=== PATIENT | male | born 1940 | race Caucasian/White ===

== ENCOUNTER 2018-05-06 04:28 | Inpatient (IN) | payer MEDICARE, OTHER ==
[~2018-05-06] VITALS: Ht 175.3 cm; Wt 64.7 kg
[~2018-05-06 04:28] MED LIST: CLOP75TA PO; FLUO20CA19 PO; LEVO50TA5 PO; LORA-445 PO; METF500T5 PO; METO25TA35 PO; OLAN5TAB9 PO; SIMV5TAB5 PO
[2018-05-06 04:58] LABS: BASOPHILS % (AUTO) 0 % (0-1); EOSINOPHILS # (AUTO) 0.31 x10^3/uL (0-0.4); EOSINOPHILS % (AUTO) 2 % (1-7); LYMPHOCYTES # (AUTO) 0.38 x10^3/uL (1-3.4); LYMPHOCYTES % (AUTO) 2 % (22-44); MD NO; MEAN CORPUSCULAR HEMOGLOBIN 29.8 pg (27.5-34.5); MEAN CORPUSCULAR HGB CONC 33.1 g/dL (33.2-36.2); MEAN CORPUSCULAR VOLUME 90.1 fL (81-97); MEAN PLATELET VOLUME 7.8 fL (7.4-10.4); MONOCYTES # (AUTO) 1.15 x10^3/uL (0.2-0.8); MONOCYTES % (AUTO) 7 % (2-9); NEUTROPHILS # (AUTO) 15.31 x10^3/uL (1.8-6.8); NEUTROPHILS % (AUTO) 89 % (42-75); PLATELET COUNT 249 x10^3/uL (130-400); RED BLOOD COUNT 5.71 x10^6/uL (4.38-5.82); RED CELL DISTRIBUTION WIDTH 13.8 % (9.4-14.8)
[2018-05-06] MEDS ORDERED: SODIUM CHLORIDE 0.9% 1,000ML IVBOLUS ONE ×2 (05:00→05:30)
[2018-05-06] MEDS ORDERED: SODIUM CHLORIDE FLUSH 10ML SYR IVF ONE (05:00)
[2018-05-06 05:08] LABS: ALANINE AMINOTRANSFERASE 15 U/L (12-78); ALBUMIN 3.8 g/dL (3.4-5.0); ANION GAP 8 mmol/L (5-15); CALCIUM 9.5 mg/dL (8.5-10.1); CHLORIDE 109 mmol/L (98-107); CREATININE 1.28 mg/dL (0.7-1.3)
[2018-05-06 05:11] LABS: ALKALINE PHOSPHATASE 106 U/L (45-117); BILIRUBIN,TOTAL 1.1 mg/dL (0.2-1.0); TOTAL PROTEIN 8.4 g/dL (6.4-8.2)
[2018-05-06] MEDS ORDERED: OMNIPAQUE 350 MG/ML, 100ML BOTTLE ONE (06:00)
[2018-05-06 07:45] LABS: MICROSCOPIC NOT IND
[2018-05-06 07:46] LABS: CULTURE INDICATED? NO
[2018-05-06] MEDS ORDERED: AZITHROMYCIN 500 MG in SODIUM CHLORIDE 0.9% 250 ML IVPB ONE (08:00)
[2018-05-06] MEDS ORDERED: ONDANSETRON 2MG/ML, 2ML IVPush ONE (08:00)
[2018-05-06] MEDS ORDERED: CEFTRIAXONE PMX 1GM/50ML 50 ML IVPB ONE (08:00)
[2018-05-06] MEDS ORDERED: ONDANSETRON 2MG/ML, 2ML ONE (08:05)
[2018-05-06] MEDS ORDERED: CEFTRIAXONE PMX 1GM/50ML 50 ML ONE (08:06)
[2018-05-06] MEDS ORDERED: LABETALOL 5MG/ML, 20ML IVPush PRN (09:30)
[2018-05-06] MEDS: LEVOTHYROXINE 50 MCG TABLET PO SCH (09:44)
[2018-05-06 09:59] VITALS: BP 97/64
[2018-05-06] MEDS ORDERED: CEFTRIAXONE 1,000 MG in SODIUM CHLORIDE 0.9% 50 ML IV SCH (10:00)
[2018-05-06] MEDS ORDERED: SODIUM CHLORIDE 0.9% 1,000 ML IV SCH (10:00)
[2018-05-06 10:20] LABS: FREE T4 (FREE THYROXINE) 1.02 ng/dL (0.76-1.46)
[2018-05-06] MEDS ORDERED: SODIUM POLYSTYRENE SULFONATE ORAL SUSP PO ONE (11:30)
[2018-05-06] MEDS: ENOXAPARIN 40 MG/0.4 ML SQ SCH (11:35)
[2018-05-06] MEDS: CLOPIDOGREL 75 MG TABLET PO SCH (11:36)
[2018-05-06] MEDS: METRONIDAZOLE PMX 500MG/100ML 100 ML IV SCH ×2 (12:35→18:06)
[2018-05-06 12:55] VITALS: BP 96/60
[2018-05-06] MEDS: DOXYCYCLINE 100 MG in DEXTROSE 5% 250 ML IV SCH (13:35)
[2018-05-06 14:00] LABS: ANION GAP 7 mmol/L (5-15); CALCIUM 8.4 mg/dL (8.5-10.1); CHLORIDE 113 mmol/L (98-107); CREATININE 1.08 mg/dL (0.7-1.3)
[2018-05-06 14:18] LABS: CLOSTRIDIUM DIFFICILE ANTIGEN NEGATIVE; CLOSTRIDIUM DIFFICILE TOXIN NEGATIVE (Negative)
[2018-05-06] MEDS: SODIUM CHLORIDE 0.9% 1,000 ML IV SCH (18:06)
[2018-05-06 19:49] VITALS: BP 104/64
[2018-05-06] MEDS: INSULIN LISPRO 100 UNITS/ML, PEN SQ-INSULIN SCH (20:52)
[2018-05-06] MEDS: SIMVASTATIN 5 MG TABLET PO SCH (20:52)
[2018-05-06] MEDS ORDERED: FLUOXETINE HCL 20 MG CAPSULE PO SCH (21:00)
[2018-05-07] MEDS: METRONIDAZOLE PMX 500MG/100ML 100 ML IV SCH ×4 (00:47→18:41)
[2018-05-07 02:15] VITALS: BP 100/64
[2018-05-07] MEDS: DOXYCYCLINE 100 MG in DEXTROSE 5% 250 ML IV SCH ×2 (02:39→13:41)
[2018-05-07 05:16] LABS: BASOPHILS # (AUTO) 0.02 x10^3/uL (0-0.1); BASOPHILS % (AUTO) 0 % (0-1); EOSINOPHILS # (AUTO) 0.46 x10^3/uL (0-0.4); EOSINOPHILS % (AUTO) 8 % (1-7); LYMPHOCYTES # (AUTO) 1.43 x10^3/uL (1-3.4); LYMPHOCYTES % (AUTO) 25 % (22-44); MD NO; MEAN CORPUSCULAR HEMOGLOBIN 30.4 pg (27.5-34.5); MEAN CORPUSCULAR HGB CONC 33.1 g/dL (33.2-36.2); MEAN CORPUSCULAR VOLUME 91.8 fL (81-97); MEAN PLATELET VOLUME 7.8 fL (7.4-10.4); MONOCYTES # (AUTO) 0.87 x10^3/uL (0.2-0.8); MONOCYTES % (AUTO) 15 % (2-9); NEUTROPHILS # (AUTO) 2.98 x10^3/uL (1.8-6.8); NEUTROPHILS % (AUTO) 52 % (42-75); PLATELET COUNT 196 x10^3/uL (130-400); RED BLOOD COUNT 4.61 x10^6/uL (4.38-5.82); RED CELL DISTRIBUTION WIDTH 14.1 % (9.4-14.8)
[2018-05-07 05:21] LABS: ALBUMIN 2.8 g/dL (3.4-5.0); ANION GAP 8 mmol/L (5-15); CALCIUM 8.3 mg/dL (8.5-10.1); CHLORIDE 110 mmol/L (98-107)
[2018-05-07 05:34] LABS: ALANINE AMINOTRANSFERASE 12 U/L (12-78); ALKALINE PHOSPHATASE 75 U/L (45-117); BILIRUBIN,TOTAL 0.9 mg/dL (0.2-1.0); CREATININE 1.12 mg/dL (0.7-1.3); THYROID STIMULATING HORMONE 0.885 mIU/L (0.358-3.740); TOTAL PROTEIN 6.3 g/dL (6.4-8.2)
[2018-05-07] MEDS: LEVOTHYROXINE 50 MCG TABLET PO SCH (05:47)
[2018-05-07] MEDS: INSULIN LISPRO 100 UNITS/ML, PEN SQ-INSULIN SCH ×4 (07:00→21:00)
[2018-05-07 07:37] VITALS: BP 121/78
[2018-05-07] MEDS ORDERED: ONDANSETRON ODT 4 MG ONE (08:26)
[2018-05-07] MEDS: CEFTRIAXONE 1,000 MG in SODIUM CHLORIDE 0.9% 50 ML IV SCH (08:28)
[2018-05-07] MEDS: CLOPIDOGREL 75 MG TABLET PO SCH (08:28)
[2018-05-07] MEDS: SODIUM CHLORIDE 0.9% 1,000 ML IV SCH (08:28)
[2018-05-07] MEDS: ONDANSETRON 2MG/ML, 2ML IVPush PRN ×2 (08:29→21:00)
[2018-05-07] MEDS: ENOXAPARIN 40 MG/0.4 ML SQ SCH (11:53)
[2018-05-07 12:56] VITALS: BP 98/64
[2018-05-07 18:27] VITALS: BP 109/68
[2018-05-07] MEDS: SIMVASTATIN 5 MG TABLET PO SCH (21:04)
[2018-05-07] MEDS ORDERED: SODIUM CHLORIDE 0.9% 1,000 ML IV SCH (23:00)
[2018-05-08] MEDS: METRONIDAZOLE PMX 500MG/100ML 100 ML IV SCH ×4 (00:24→18:18)
[2018-05-08] MEDS: DIPHENHYDRAMINE 25 MG CAPSULE PO PRN (00:51)
[2018-05-08 00:53] VITALS: BP 105/66
[2018-05-08 05:40] LABS: BASOPHILS # (AUTO) 0.03 x10^3/uL (0-0.1); BASOPHILS % (AUTO) 1 % (0-1); EOSINOPHILS # (AUTO) 0.47 x10^3/uL (0-0.4); EOSINOPHILS % (AUTO) 8 % (1-7); LYMPHOCYTES # (AUTO) 1.25 x10^3/uL (1-3.4); LYMPHOCYTES % (AUTO) 22 % (22-44); MD NO; MEAN CORPUSCULAR HEMOGLOBIN 29.9 pg (27.5-34.5); MEAN CORPUSCULAR HGB CONC 32.9 g/dL (33.2-36.2); MEAN CORPUSCULAR VOLUME 90.7 fL (81-97); MEAN PLATELET VOLUME 7.5 fL (7.4-10.4); MONOCYTES # (AUTO) 0.83 x10^3/uL (0.2-0.8); MONOCYTES % (AUTO) 15 % (2-9); NEUTROPHILS # (AUTO) 3.15 x10^3/uL (1.8-6.8); NEUTROPHILS % (AUTO) 55 % (42-75); PLATELET COUNT 193 x10^3/uL (130-400); RED BLOOD COUNT 4.36 x10^6/uL (4.38-5.82); RED CELL DISTRIBUTION WIDTH 13.2 % (9.4-14.8)
[2018-05-08 05:53] LABS: CHLORIDE 112 mmol/L (98-107)
[2018-05-08 06:00] LABS: ALANINE AMINOTRANSFERASE 13 U/L (12-78); ALBUMIN 2.7 g/dL (3.4-5.0); ALKALINE PHOSPHATASE 73 U/L (45-117); ANION GAP 4 mmol/L (5-15); BILIRUBIN,TOTAL 0.9 mg/dL (0.2-1.0); CALCIUM 8.1 mg/dL (8.5-10.1); CREATININE 0.92 mg/dL (0.7-1.3); TOTAL PROTEIN 6.2 g/dL (6.4-8.2)
[2018-05-08] MEDS: LEVOTHYROXINE 50 MCG TABLET PO SCH (06:19)
[2018-05-08 06:59] VITALS: BP 133/69
[2018-05-08] MEDS: CEFTRIAXONE 1,000 MG in SODIUM CHLORIDE 0.9% 50 ML IV SCH (08:22)
[2018-05-08] MEDS: INSULIN LISPRO 100 UNITS/ML, PEN SQ-INSULIN SCH ×4 (08:22→21:00)
[2018-05-08] MEDS ORDERED: SODIUM CHLORIDE 0.9% 1,000 ML IV SCH (09:28)
[2018-05-08] MEDS: CLOPIDOGREL 75 MG TABLET PO SCH (09:50)
[2018-05-08] MEDS: ENOXAPARIN 40 MG/0.4 ML SQ SCH (12:17)
[2018-05-08 14:01] VITALS: BP 113/67
[2018-05-08] MEDS: ONDANSETRON 2MG/ML, 2ML IVPush PRN (18:55)
[2018-05-08 19:20] VITALS: BP 107/66
[2018-05-08] MEDS: CIPROFLOXACIN 500 MG TABLET PO SCH (21:00)
[2018-05-08] MEDS: SIMVASTATIN 5 MG TABLET PO SCH (21:00)
[2018-05-08] MEDS: metroNIDAZOLE 500 MG TABLET PO SCH (21:00)
[2018-05-08] MEDS: LACTOBACILLUS CHEW TABLET PO SCH (21:00)
[2018-05-08] MEDS: PROMETHAZINE 25 MG/ML, 1ML IM PRN (21:44)
[2018-05-09 01:17] VITALS: BP 103/59
[2018-05-09] MEDS: ONDANSETRON 2MG/ML, 2ML IVPush PRN ×2 (05:03→17:25)
[2018-05-09] MEDS: SODIUM CHLORIDE 0.9% 1,000 ML IV SCH ×2 (05:06→20:59)
[2018-05-09 05:43] LABS: CALCIUM 8.5 mg/dL (8.5-10.1); CHLORIDE 112 mmol/L (98-107)
[2018-05-09 05:44] LABS: BASOPHILS # (AUTO) 0.02 x10^3/uL (0-0.1); BASOPHILS % (AUTO) 0 % (0-1); EOSINOPHILS # (AUTO) 0.46 x10^3/uL (0-0.4); EOSINOPHILS % (AUTO) 7 % (1-7); LYMPHOCYTES # (AUTO) 1.62 x10^3/uL (1-3.4); LYMPHOCYTES % (AUTO) 24 % (22-44); MD NO; MEAN CORPUSCULAR HEMOGLOBIN 30.3 pg (27.5-34.5); MEAN CORPUSCULAR HGB CONC 33.3 g/dL (33.2-36.2); MEAN CORPUSCULAR VOLUME 90.8 fL (81-97); MEAN PLATELET VOLUME 7.7 fL (7.4-10.4); MONOCYTES # (AUTO) 0.82 x10^3/uL (0.2-0.8); MONOCYTES % (AUTO) 12 % (2-9); NEUTROPHILS # (AUTO) 3.75 x10^3/uL (1.8-6.8); NEUTROPHILS % (AUTO) 56 % (42-75); PLATELET COUNT 204 x10^3/uL (130-400); RED CELL DISTRIBUTION WIDTH 13.3 % (9.4-14.8)
[2018-05-09 05:46] LABS: ANION GAP 8 mmol/L (5-15); CREATININE 0.86 mg/dL (0.7-1.3)
[2018-05-09] MEDS: LEVOTHYROXINE 50 MCG TABLET PO SCH (06:00)
[2018-05-09 06:34] LABS: HEMOGLOBIN A1C 5.7 % (4.2-6.3)
[2018-05-09 07:06] VITALS: BP 130/74
[2018-05-09] MEDS: LACTOBACILLUS CHEW TABLET PO SCH ×3 (09:58→20:58)
[2018-05-09] MEDS: metroNIDAZOLE 500 MG TABLET PO SCH ×3 (09:58→20:59)
[2018-05-09] MEDS: CLOPIDOGREL 75 MG TABLET PO SCH (09:58)
[2018-05-09] MEDS: CIPROFLOXACIN 500 MG TABLET PO SCH ×2 (09:58→20:58)
[2018-05-09] MEDS ORDERED: PARO20TA4 PO (12:58)
[2018-05-09] MEDS ORDERED: FLUV50TA2 PO (12:58)
[2018-05-09] MEDS ORDERED: ACET-1600 PO (12:58)
[2018-05-09] MEDS ORDERED: ALBU18HF INH (12:58)
[2018-05-09] MEDS ORDERED: CLON-364 PO (12:58)
[2018-05-09] MEDS ORDERED: BUDE10.2 INH (12:58)
[2018-05-09] MEDS: ENOXAPARIN 40 MG/0.4 ML SQ SCH (13:02)
[2018-05-09 13:13] VITALS: BP 118/76
[2018-05-09 20:50] VITALS: BP 110/70
[2018-05-09] MEDS: PROMETHAZINE 25 MG/ML, 1ML IM PRN (20:57)
[2018-05-09] MEDS: CALCIUM/VITAMIN D3 250-125 TABLET PO SCH (20:58)
[2018-05-09] MEDS: SIMVASTATIN 5 MG TABLET PO SCH (20:59)
[2018-05-10 02:41] VITALS: BP 122/74
[2018-05-10] MEDS: LEVOTHYROXINE 50 MCG TABLET PO SCH (06:28)
[2018-05-10] MEDS: ALENDRONATE 10 MG TABLET PO SCH (06:28)
[2018-05-10 08:23] VITALS: BP 106/63
[2018-05-10] MEDS: CIPROFLOXACIN 500 MG TABLET PO SCH ×2 (08:53→20:40)
[2018-05-10] MEDS: LACTOBACILLUS CHEW TABLET PO SCH ×3 (08:53→20:40)
[2018-05-10] MEDS: CALCIUM/VITAMIN D3 250-125 TABLET PO SCH ×2 (08:53→20:40)
[2018-05-10] MEDS: CLOPIDOGREL 75 MG TABLET PO SCH (08:53)
[2018-05-10] MEDS: metroNIDAZOLE 500 MG TABLET PO SCH ×3 (08:53→20:40)
[2018-05-10] MEDS ORDERED: METR500T PO (10:06)
[2018-05-10] MEDS ORDERED: CALC1TAB68 PO (10:06)
[2018-05-10] MEDS ORDERED: CIPR500T87 PO (10:06)
[2018-05-10] MEDS ORDERED: ACID1TAB7 PO (10:06)
[2018-05-10] MEDS ORDERED: ALEN10TA6 PO (10:06)
[2018-05-10 12:38] VITALS: BP 142/77
[2018-05-10] MEDS: ENOXAPARIN 40 MG/0.4 ML SQ SCH (12:43)
[2018-05-10] MEDS: SIMVASTATIN 5 MG TABLET PO SCH (20:41)
[2018-05-10 20:43] VITALS: BP 101/57
[2018-05-11] MEDS: DIPHENHYDRAMINE 25 MG CAPSULE PO PRN (02:00)
[2018-05-11 02:02] VITALS: BP 108/65
[2018-05-11] MEDS: LEVOTHYROXINE 50 MCG TABLET PO SCH (06:03)
[2018-05-11] MEDS: ALENDRONATE 10 MG TABLET PO SCH (06:03)
[2018-05-11 08:45] VITALS: BP 120/74
[2018-05-11] MEDS: metroNIDAZOLE 500 MG TABLET PO SCH ×2 (09:54→16:00)
[2018-05-11] MEDS: CALCIUM/VITAMIN D3 250-125 TABLET PO SCH (09:54)
[2018-05-11] MEDS: CIPROFLOXACIN 500 MG TABLET PO SCH (09:54)
[2018-05-11] MEDS: CLOPIDOGREL 75 MG TABLET PO SCH (09:55)
[2018-05-11] MEDS: LACTOBACILLUS CHEW TABLET PO SCH ×2 (09:55→16:00)
[2018-05-11] MEDS: ENOXAPARIN 40 MG/0.4 ML SQ SCH (09:57)
[2018-05-11] MEDS ORDERED: PNEUMOCOCCAL 23 VACCINE IM-VACC ONE (14:00)
[2018-05-11 15:22] VITALS: BP 120/74
== END 2018-05-11 16:25 | DRG 391 ==
LOC: ED 05:51 → 3NE 09:13 → 4WST 10:53
PROVIDERS: ADMIT Internal Medicine; ATTEND Internal Medicine
DX: A08.4 Viral intestinal infection, unspecified (principal); J18.0 Bronchopneumonia, unspecified organism; M48.56XA Collapsed vertebra, not elsewhere classified, lumbar region, initial encounter for fracture; J98.11 Atelectasis; N17.9 Acute kidney failure, unspecified; R65.10 Systemic inflammatory response syndrome (SIRS) of non-infectious origin without acute organ dysfunction; J84.10 Pulmonary fibrosis, unspecified; E87.5 Hyperkalemia; J84.89 Other specified interstitial pulmonary diseases; E11.9 Type 2 diabetes mellitus without complications; E86.0 Dehydration; G89.29 Other chronic pain; I25.10 Atherosclerotic heart disease of native coronary artery without angina pectoris; I25.2 Old myocardial infarction; J45.909 Unspecified asthma, uncomplicated; M81.0 Age-related osteoporosis without current pathological fracture; N40.0 Benign prostatic hyperplasia without lower urinary tract symptoms; I95.89 Other hypotension; R00.0 Tachycardia, unspecified; K80.80 Other cholelithiasis without obstruction; Z79.4 Long term (current) use of insulin; Z95.5 Presence of coronary angioplasty implant and graft
CPT/HCPCS: 36415; 71045; 74177; 80048; 80053; 81003; 82962; 83036; 83605; 83690; 83735; 83880; 84439; 84443; 85025; 87040; 87046; 87252; 87324; 87427; 87798; 89055; 90732; 93005; J0456; J0696; J1650; J2405; J2550; J7060; Q9967; 92523-GN; G0515-GN; J7030; J7050; Q0163

== ENCOUNTER 2019-09-17 23:43 | Emergency (ER) | payer OTHER ==
[~2019-09-17] VITALS: Ht 182.9 cm; Wt 72.4 kg
[~2019-09-17 23:43] MED LIST changes: +ACET-1600 PO; +ACID1TAB7 PO; +ALBU18HF INH; +ALEN10TA7 PO; +BUDE10.2 INH; +CALC1TAB68 PO; +CIPR500T87 PO; +CLON0.5T11 PO; +FLUV50TA2 PO; +METF500T17 PO; -METF500T5 PO; +METR500T PO; +PARO20TA4 PO; +SIMV5TAB14 PO; -SIMV5TAB5 PO
--- NOTE | 2019-09-18 00:52 | NUR ---
PT TO ROOM FROM LOBBY. PT ASSISTED INTO BED. PTS DAUGHTER AT BEDSIDE.
[2019-09-18] MEDS ORDERED: SODIUM CHLORIDE FLUSH 10ML SYR IVF ONE (01:00)
[2019-09-18] MEDS ORDERED: FAMOTIDINE 20 MG/2 ML IV ONE (01:00)
[2019-09-18] MEDS ORDERED: SODIUM CHLORIDE 0.9% 1,000ML IVBOLUS ONE (01:00)
[2019-09-18] MEDS ORDERED: ONDANSETRON 2MG/ML, 2ML IVPush ONE (01:00)
[2019-09-18 01:07] LABS: BASOPHILS # (AUTO) 0.01 x10^3/uL (0-0.1); BASOPHILS % (AUTO) 0 % (0-1); EOSINOPHILS # (AUTO) 0.42 x10^3/uL (0-0.4); EOSINOPHILS % (AUTO) 3 % (1-7); LYMPHOCYTES # (AUTO) 0.56 x10^3/uL (1-3.4); LYMPHOCYTES % (AUTO) 3 % (22-44); MD NO; MEAN CORPUSCULAR HEMOGLOBIN 31.3 pg (27.5-34.5); MEAN CORPUSCULAR HGB CONC 32.6 g/dL (33.2-36.2); MEAN PLATELET VOLUME 7.7 fL (7.4-10.4); MONOCYTES # (AUTO) 1.21 x10^3/uL (0.2-0.8); MONOCYTES % (AUTO) 7 % (2-9); NEUTROPHILS # (AUTO) 14.99 x10^3/uL (1.8-6.8); NEUTROPHILS % (AUTO) 87 % (42-75); PLATELET COUNT 264 x10^3/uL (130-400); RED BLOOD COUNT 5.97 x10^6/uL (4.38-5.82)
[2019-09-18] MEDS ORDERED: ONDANSETRON 2MG/ML, 2ML ONE (01:15)
[2019-09-18] MEDS ORDERED: FAMOTIDINE 20 MG/2 ML ONE (01:15)
--- NOTE | 2019-09-18 01:30 | NUR ---
PT HERE FOR N/V/D X 4-5 HOURS AFTER EATING A CORN DOG. VSS. PIV PLACED. PT MEDICATED FOR NAUSEA. FLUIDS RUNNING. CALL LIGHT IN REACH
--- NOTE | 2019-09-18 01:44 | NUR ---
CT PENDING LAB/CREATINE
[2019-09-18 01:58] LABS: ALBUMIN 4.1 g/dL (3.4-5.0); ANION GAP 7 mmol/L (5-15); CALCIUM 9.3 mg/dL (8.5-10.1); CHLORIDE 109 mmol/L (98-107)
[2019-09-18 02:01] LABS: ALANINE AMINOTRANSFERASE 20 U/L (12-78); ALKALINE PHOSPHATASE 71 U/L (45-117); BILIRUBIN,TOTAL 2.2 mg/dL (0.2-1.0); CREATININE 1.49 mg/dL (0.7-1.3); TOTAL PROTEIN 9.5 g/dL (6.4-8.2); TROPONIN I < 0.015 ng/mL (0.000-0.045)
--- NOTE | 2019-09-18 02:32 | NUR ---
PT BACK FROM CT
[2019-09-18] MEDS ORDERED: OMNIPAQUE 350 MG/ML, 100ML BOTTLE ONE (02:48)
--- NOTE | 2019-09-18 03:37 | NUR ---
PT RESTING. VSS. PT WAITING FOR CT RESULTS
[2019-09-18 04:02] VITALS: BP 109/63
--- NOTE | 2019-09-18 04:03 | NUR ---
PT RESTING. UPDATED ON POC. VSS. SAYS HE IS FEELING BETTER. CALL LIGHT IN REACH
--- NOTE | 2019-09-18 04:26 | NUR ---
PT GIVEN WATER FOR PO CHALLANGE. PT TOLERATING WELL.
--- NOTE | 2019-09-18 04:49 | NUR ---
Patient given discharge instructions and they have confirmed that they understand the instructions. Patient ambulatory with steady gait.
== END 2019-09-18 04:52 | disposition home or self-care (01) ==
LOC: ED 09-18 03:20
DX: R11.2 Nausea with vomiting, unspecified (principal); R19.7 Diarrhea, unspecified; F32.9 Major depressive disorder, single episode, unspecified; F41.1 Generalized anxiety disorder; E11.9 Type 2 diabetes mellitus without complications; I25.2 Old myocardial infarction; Z95.5 Presence of coronary angioplasty implant and graft
CPT/HCPCS: 36415; 74177; 80053; 83605; 83690; 84484; 85025; 93005; 96361; 96374; 96375; 99284; J2405; J3490; J7030; Q9967

== ENCOUNTER → 2019-10-22 | Outpatient (CLI) | payer OTHER | END | disposition home or self-care (01) | LOC: CFH 07:25 | PROVIDERS: ATTEND Internal Medicine Cardiovascular Disease | CPT/HCPCS: 93306 ==

== ENCOUNTER 2019-11-21 14:38 | Outpatient (CLI) | payer OTHER | END 2019-11-21 23:59 | disposition home or self-care (01) | LOC: CFH 14:38 | PROVIDERS: ATTEND Family Medicine | DX: S22.069A Unspecified fracture of T7-T8 vertebra, initial encounter for closed fracture (principal); J84.10 Pulmonary fibrosis, unspecified; J98.4 Other disorders of lung; J47.9 Bronchiectasis, uncomplicated; R49.0 Dysphonia; X58.XXXA Exposure to other specified factors, initial encounter; Y93.89 Activity, other specified; Y92.89 Other specified places as the place of occurrence of the external cause; Y99.8 Other external cause status | CPT/HCPCS: 71046 ==

== ENCOUNTER → 2020-01-16 | Outpatient (CLI) | payer OTHER ==
[~2020-01-16] MED LIST changes: +ALEN10TA10 PO; -ALEN10TA7 PO; +CLON-364 PO; -CLON0.5T11 PO
== END | disposition home or self-care (01) ==
LOC: CFH 06:50
PROVIDERS: ATTEND Family Medicine
DX: K80.20 Calculus of gallbladder without cholecystitis without obstruction (principal); K76.0 Fatty (change of) liver, not elsewhere classified
CPT/HCPCS: 76700

== ENCOUNTER 2020-12-06 09:49 | Emergency (ER) | payer OTHER ==
[~2020-12-06] VITALS: Ht 182.9 cm; Wt 73.0 kg
--- NOTE | 2020-12-06 10:08 | NUR ---
Pt reports he is in no pain when lying still. Pt sitting up in bed, conversational, able to answer all quesitons. XR's ordered for pt.'s back. Provider was at bedside and assessed pt.
--- NOTE | 2020-12-06 10:19 | NUR ---
Pt to XR
--- NOTE | 2020-12-06 10:30 | NUR ---
Pt's daughter at bedside.
--- NOTE | 2020-12-06 10:43 | NUR ---
Pt back from XR
--- NOTE | 2020-12-06 11:00 | NUR ---
Applied dressing of Curad and nonstick gauze pad wrapped with cobam to pt's left hand.
--- NOTE | 2020-12-06 11:14 | NUR ---
Assisted pt with bedside urinal.
--- NOTE | 2020-12-06 12:04 | NUR ---
Daughter expressing concern with patient being able to care for self at home- this RN called health and social care teacher who reported they will come visit with family and pt to discuss resource options for help at pts assisted living facility.
[2020-12-06 12:16] VITALS: BP 116/67
--- NOTE | 2020-12-06 12:16 | NUR ---
anode worker at bedside.
--- NOTE | 2020-12-06 12:39 | NUR ---
Pt does not have portable oxygen. Discussed with pts daughter option of [facility]. Daughter agreed to this plan. [facility] contacted to transport pt, report they will be here about 1315. Informed pt and pts daughter.
--- NOTE | 2020-12-06 13:35 | NUR ---
Pt being tranpsorted back to [facility] via [facility].
== END 2020-12-06 13:39 | disposition home or self-care (01) ==
LOC: ED 10:34
DX: S32.020A Wedge compression fracture of second lumbar vertebra, initial encounter for closed fracture (principal); S32.030A Wedge compression fracture of third lumbar vertebra, initial encounter for closed fracture; S32.040A Wedge compression fracture of fourth lumbar vertebra, initial encounter for closed fracture; I44.4 Left anterior fascicular block; R94.31 Abnormal electrocardiogram [ECG] [EKG]; I49.3 Ventricular premature depolarization; E11.9 Type 2 diabetes mellitus without complications; I25.2 Old myocardial infarction; J45.909 Unspecified asthma, uncomplicated; M81.0 Age-related osteoporosis without current pathological fracture; W18.39XA Other fall on same level, initial encounter; Y93.89 Activity, other specified; Y92.89 Other specified places as the place of occurrence of the external cause; Y99.8 Other external cause status
CPT/HCPCS: 72110; 93005; 99283

== ENCOUNTER 2021-01-17 01:50 | Emergency (ER) | payer OTHER ==
[~2021-01-17] VITALS: Ht 182.9 cm; Wt 55.0 kg
--- NOTE | 2021-01-17 01:59 | NUR ---
BIB EMS FROM THE [facility]. PT HAD LUMBAR FX DIAGNOSED A MONTH AGO AND STATES ORAL OXY IS NOT HELPING. PT RESTING IN GURNEY, STATES HAVING PAIN AND ANXIETY. NO OTHER NEEDS AT THIS TIME. ERP AT BEDSIDE. DENIES CP, AND SOB. PT HAS CONCENTRATOR AT HOME
--- NOTE | 2021-01-17 03:08 | NUR ---
spoke with security at [facility]. all caregivers go home at night so unable to verify medications given. per guard all residents get medications at 10 pm and nothing else throughout the night. erp updated and ok ordering pain meds for pt.
[2021-01-17] MEDS ORDERED: HYDROcodone/APAP 5/325 TABLET ONE (03:11)
[2021-01-17] MEDS ORDERED: METHOCARBAMOL 750 MG TABLET ONE (03:11)
--- NOTE | 2021-01-17 03:17 | NUR ---
pt to xray
[2021-01-17] MEDS ORDERED: METHOCARBAMOL 750 MG TABLET PO ONE (03:30)
[2021-01-17] MEDS ORDERED: HYDROcodone/APAP 5/325 TABLET PO ONE (03:30)
[2021-01-17 03:50] LABS: MEAN CORPUSCULAR HGB CONC 33.3 g/dL (33.2-36.2); MEAN PLATELET VOLUME 8.2 fL (7.4-10.4); PLATELET COUNT 234 x10^3/uL (130-400); RED BLOOD COUNT 4.68 x10^6/uL (4.38-5.82); RED CELL DISTRIBUTION WIDTH 14.5 % (9.4-14.8)
[2021-01-17 04:02] LABS: ALANINE AMINOTRANSFERASE 15 U/L (12-78); ALBUMIN 3.5 g/dL (3.4-5.0); ANION GAP 7 mmol/L (5-15); CALCIUM 9.2 mg/dL (8.5-10.1); CHLORIDE 105 mmol/L (98-107); CREATININE 1.48 mg/dL (0.7-1.3)
[2021-01-17 04:06] LABS: ALKALINE PHOSPHATASE 108 U/L (45-117); BILIRUBIN,TOTAL 1.3 mg/dL (0.2-1.0); TOTAL PROTEIN 8.2 g/dL (6.4-8.2); TROPONIN I < 0.015 ng/mL (0.000-0.045)
[2021-01-17 04:09] LABS: MICROSCOPIC NOT IND
[2021-01-17 04:32] LABS: MD YES
[2021-01-17 04:35] LABS: BAND#(MANUAL) 0.08 x10^3/uL; BANDS%(MANUAL) 1 % (0-7); BASOS#(MANUAL) 0.25 x10^3/uL (0-0.1); BASOS% (MANUAL) 3 % (0-1); EOS#(MANUAL) 0.98 x10^3/uL (0.0-0.4); EOS% (MANUAL) 12 % (1-7); LYMPH#(MANUAL) 2.38 x10^3/uL (1-3.4); LYMPHS% (MANUAL) 29 % (22-44); MONOS#(MANUAL) 0.41 x10^3/uL (0.3-2.7); MONOS% (MANUAL) 5 % (2-9); REACTIVE LYMPHS # (MANUAL) 0.16 x10^3/uL (0-0); REACTIVE LYMPHS % (MANUAL) 2 % (0-0); SEG#(MANUAL) 3.94 x10^3/uL (1.8-6.8); SEGS% (MANUAL) 48 % (42-75)
[2021-01-17 04:36] LABS: <PLATELET ESTIMATE> ADEQUATE; <PLT MORPHOLOGY> NORMAL PLT MORPH; <RBC MORPHOLOGY> NORMAL
[2021-01-17 04:56] VITALS: BP 104/65
== END 2021-01-17 06:13 | disposition home or self-care (01) ==
LOC: ED 04:46
DX: M48.56XA Collapsed vertebra, not elsewhere classified, lumbar region, initial encounter for fracture (principal); G89.29 Other chronic pain; R10.9 Unspecified abdominal pain; E11.9 Type 2 diabetes mellitus without complications; I25.2 Old myocardial infarction; J45.909 Unspecified asthma, uncomplicated; M81.0 Age-related osteoporosis without current pathological fracture; Z87.891 Personal history of nicotine dependence
CPT/HCPCS: 36415; 72110; 80053; 81003; 84484; 85025; 99284; Q0177

== ENCOUNTER 2021-01-22 11:50 | Emergency (ER) | payer OTHER ==
[~2021-01-22] VITALS: Ht 182.9 cm; Wt 65.0 kg
--- NOTE | 2021-01-22 12:20 | NUR ---
PT REPEATEDLY YELLS OUT "HELP, I CAN'T BREATH". PT OXYGEN LEVEL 97% ON BASELINE 2L. NO RESPT DISTRESS.
[2021-01-22] MEDS ORDERED: ALBUTEROL/IPRATROPIUM 2.5MG/0.5MG, 3 ML ONE (12:53)
[2021-01-22 13:00] LABS: BASOPHILS % (AUTO) 1 % (0-1); EOSINOPHILS % (AUTO) 2 % (1-7); LYMPHOCYTES % (AUTO) 11 % (22-44); MEAN CORPUSCULAR HEMOGLOBIN 29.6 pg (27.5-34.5); MEAN CORPUSCULAR HGB CONC 33.3 g/dL (33.2-36.2); MEAN PLATELET VOLUME 7.9 fL (7.4-10.4); MONOCYTES % (AUTO) 9 % (2-9); NEUTROPHILS % (AUTO) 78 % (42-75); PLATELET COUNT 296 x10^3/uL (130-400); RED BLOOD COUNT 4.58 x10^6/uL (4.38-5.82); RED CELL DISTRIBUTION WIDTH 14.7 % (9.4-14.8)
[2021-01-22] MEDS ORDERED: ALBUTEROL/IPRATROPIUM 2.5MG/0.5MG, 3 ML NPPB ONE (13:00)
--- NOTE | 2021-01-22 13:02 | NUR ---
[place] STARTED. PT EDUCATED ON USE.
[2021-01-22 13:09] LABS: ALBUMIN 3.7 g/dL (3.4-5.0); ANION GAP 10 mmol/L (5-15); CALCIUM 9.5 mg/dL (8.5-10.1); CHLORIDE 102 mmol/L (98-107)
[2021-01-22 13:14] LABS: CREATININE 1.34 mg/dL (0.7-1.3); TROPONIN I 0.016 ng/mL (0.000-0.045)
[2021-01-22 13:18] LABS: MD NO
--- NOTE | 2021-01-22 13:19 | NUR ---
PT CONTINUES TO YELL OUT "HELP, I CAN'T BREATH". PT OXYGEN LEVEL 97% ON BASELINE 2L. NO RESPT DISTRESS.
[2021-01-22] MEDS ORDERED: LORazepam 1MG TABLET ONE (13:24)
--- NOTE | 2021-01-22 13:29 | NUR ---
DRYWALL PROFESSIONAL PER MAR.
[2021-01-22] MEDS ORDERED: LORazepam 1MG TABLET PO ONE (13:30)
--- NOTE | 2021-01-22 13:32 | NUR ---
PALLIATIVE CARE CONSULTED PER DAUGHTER
--- NOTE | 2021-01-22 14:33 | NUR ---
PALIATIVE CARE AT BEDSIDE.
[2021-01-22 15:31] VITALS: BP 115/62
--- NOTE | 2021-01-22 15:47 | NUR ---
[facility] AT BEDSIDE FOR TRANSPORT HOME. DAUGHTER AT BEDSIDE.
== END 2021-01-22 15:59 | disposition home or self-care (01) ==
LOC: ED 12:20
DX: R06.00 Dyspnea, unspecified (principal); H61.21 Impacted cerumen, right ear; F41.1 Generalized anxiety disorder; R06.4 Hyperventilation; I25.2 Old myocardial infarction; E11.9 Type 2 diabetes mellitus without complications; J45.909 Unspecified asthma, uncomplicated
CPT/HCPCS: 36415; 71045; 80048; 82040; 83880; 84484; 85025; 93005; 94640; 99285

== ENCOUNTER 2021-01-29 02:04 | Emergency (ER) | payer OTHER ==
[~2021-01-29] VITALS: Ht 180.3 cm; Wt 65.0 kg
--- NOTE | 2021-01-29 02:11 | NUR ---
PT BIB [facility] WHERE HE LIVES ALONE AFTER A GLF TODAY. PT REPORTS FALLING ON HIS BACK, DENIES LOC, WHEN HE FELL O2 NC CAME OFF AND UPON EMS ARRIVAL PT WAS CONFUSED. ONCE O2 REPLACED PT A&OX4. PT REPORTS ONE OTHER FALL 4 WEEKS AGO WHEN HE FRACTURED HIS HUMERUS. PT RESTING ON SARMADJAZMIN, PLACED ON SPO2/BP/ECG MONITORING. KEIRY MENDEZ AT . PT REPORTS USING WHEELCHAIR TO GET AROUND AT HOME. Addendum: 01/29/21 at 0214 by NAVDEEP PT ON PLAVIX AND 4L NC AT HOME
[2021-01-29] MEDS ORDERED: MORPHINE SULFATE 4 MG/ML, 1ML ONE (03:06)
[2021-01-29] MEDS ORDERED: ONDANSETRON 2MG/ML, 2ML ONE (03:06)
[2021-01-29] MEDS: MORPHINE SULFATE 4 MG/ML, 1ML IVPush PRN ×2 (03:08→04:07)
[2021-01-29] MEDS ORDERED: ONDANSETRON 2MG/ML, 2ML IVPush ONE (03:30)
--- NOTE | 2021-01-29 03:47 | NUR ---
PT RESTING ON JAZMIN BAÑUELOS, STATES HIS PAIN HAS NOT LESSENED, RN TO BEDSIDE FOR PAIN MEDICATION ADMINISTRATION. PT FAMILY AT BS. [facility]. PT CLEARED FOR DC. [facility].
[2021-01-29 04:17] VITALS: BP 116/68
--- NOTE | 2021-01-29 05:12 | NUR ---
PT RESTING ON GULATHA, JAZMIN, NO CHANGE IN CONDITION, MONITORING DC AT THIS TIME D/T PT BEING UP FOR DC. PAPERWORK REVIEWED WITH DAUGHTER, SHE VERBALIZED UNDERSTANDING, HOSPICE NURSE UPDATED. PT AND DAUGHTER DENY ADDITIONAL QUESTIONS OR NEEDS AT THIS TIME. WCTM. WAITING FOR EMS
--- NOTE | 2021-01-29 05:40 | NUR ---
EMS CALLED FOR UPDATED ARRIVAL TIME. STATES PT IS AT THE TOP OF THE LIST. WCTM.
--- NOTE | 2021-01-29 05:50 | NUR ---
HALLE MANAGER OF PRODUCTION [phone] CALL WHEN PT PICKED UP BY [facility]
--- NOTE | 2021-01-29 06:43 | NUR ---
EMS PICKED UP PT AT THIS TIME. HAND REAMER INFORMED THAT PT IS ON HIS WAY. PT NAD, NO CHANGE IN CONDITION, DENIES ADDITIONAL NEEDS.
== END 2021-01-29 06:45 | disposition home or self-care (01) ==
LOC: ED 02:34
DX: S39.012A Strain of muscle, fascia and tendon of lower back, initial encounter (principal); I25.2 Old myocardial infarction; E11.9 Type 2 diabetes mellitus without complications; R51.9 Headache, unspecified; W01.0XXA Fall on same level from slipping, tripping and stumbling without subsequent striking against object, initial encounter; Y93.89 Activity, other specified; Y92.89 Other specified places as the place of occurrence of the external cause; Y99.8 Other external cause status
CPT/HCPCS: 70450; 72110; 93005; 96374; 96375; 96376; 99285; J2270; J2405